=== PATIENT | male | born 1965 | race Caucasian/White ===

== ENCOUNTER → 2022-11-08 14:34 | Outpatient (BNVA) | payer MEDICAID, SELFPAY | PROVIDERS: Referring Provider Family Medicine; Visit Provider Dermatology | DX: L57.0 Actinic keratosis (principal); L81.4 Other melanin hyperpigmentation; L57.8 Other skin changes due to chronic exposure to nonionizing radiation; L90.5 Scar conditions and fibrosis of skin | CPT/HCPCS: 11102; 17000; 99203 ==